=== PATIENT | male | born 1930 | race Caucasian/White ===

== ENCOUNTER 2017-02-21 09:01 | Outpatient (CLI) ==
[2015-10-26 11:46] VITALS: BMI 25.8
== END 2017-02-21 09:02 | disposition short-term general hospital (02) ==
LOC: AMBL 09:01
PROVIDERS: ATTEND Internal Medicine
DX: R41.0 Disorientation, unspecified (principal); K92.0 Hematemesis; R06.2 Wheezing; R00.0 Tachycardia, unspecified